=== PATIENT | male | born 1990 | race Caucasian/White ===

== ENCOUNTER 2017-08-05 08:51 | Emergency (ER) | payer MEDICAID ==
[~2017-08-05] VITALS: Ht 182.9 cm; Wt 97.5 kg
--- NOTE | 2017-08-05 08:57 | NUR ---
pt rec'd to er c/o upper rt abd pain 10/10 for one day AWAITING EVALUATION BY ER PROVIDER.
[2017-08-05] MEDS ORDERED: ONDANSETRON HCL/PF 4 MG/2 ML VIAL ONE (09:11)
[2017-08-05] MEDS ORDERED: KETOROLAC TROMETHAMINE 15 MG/ML VIAL ONE (09:12)
[2017-08-05 09:16] LABS: BASOPHILS # (AUTO) 0.3 /CMM (0.0-0.2); BASOPHILS % (AUTO) 1.4 % (0.0-2.0); EOSINOPHILS % (AUTO) 0.3 % (0.0-6.0); HEMATOCRIT 46 % (39-51); HEMOGLOBIN 16.4 g/dL (13.5-17.5); LYMPHOCYTES # (AUTO) 0.8 /CMM (0.8-4.8); LYMPHOCYTES % (AUTO) 4.4 % (20.0-44.0); MEAN CORPUSCULAR HGB CONC 35 g/dl (31.0-36.0); MEAN CORPUSCULAR VOLUME 83 fL (80-96); MONOCYTES % (AUTO) 5.3 % (2.0-12.0); NEUTROPHILS # (AUTO) 15.9 /CMM (1.8-8.9); NEUTROPHILS % (AUTO) 88.6 % (43.0-81.0); PLATELET COUNT (AUTO) 192 /CMM (150-450); RDW COEFFICIENT OF VARIATION 12.4 (11.5-15.0); RED BLOOD CELL COUNT(AUTO) 5.59 MIL/uL (4.5-6.0); WHITE BLOOD COUNT (AUTO) 18.1 K/uL (4.3-11.0)
--- NOTE | 2017-08-05 09:19 | NUR ---
alexia willett per md order vss ultrasound at bedside
[2017-08-05] MEDS ORDERED: PANTOPRAZOLE 40 MG VIAL ONE (09:20)
[2017-08-05 09:21] LABS: CALCIUM, SERUM 9.2 mg/dL (8.5-10.1); CREATININE 1.1 mg/dL (0.6-1.3); POTASSIUM 3.9 mmol/L (3.5-5.1)
[2017-08-05 09:27] LABS: ALBUMIN 4.2 g/dL (3.4-5.0); BILIRUBIN,DIRECT 0.2 mg/dL (0.0-0.2); BILIRUBIN,TOTAL 0.7 mg/dL (0.2-1.0); TOTAL PROTEIN, SERUM 8.2 g/dL (6.4-8.2)
[2017-08-05] MEDS ORDERED: PANTOPRAZOLE 40 MG VIAL IV ONE (09:30)
[2017-08-05] MEDS ORDERED: KETOROLAC TROMETHAMINE INJ 30 MG/ML VIAL IV ONE (09:30)
[2017-08-05] MEDS ORDERED: ONDANSETRON HCL/PF - ER 4 MG/2 ML VIAL IV ONE (09:30)
[2017-08-05] MEDS ORDERED: IV NS 0.9% 1,000 ML BAG IV ONE (09:30)
--- NOTE | 2017-08-05 10:01 | NUR ---
pt sent to xray sstated feeling better
[2017-08-05 10:29] LABS: NEUTROPHILS % (MANUAL) 83 (42-76)
[2017-08-05 10:30] LABS: BAND % (MANUAL) 2 % (0.0-5.0); EOSINOPHILS % (MANUAL) 2 % (0-4); LYMPHOCYTES % (MANUAL) 5 % (16-48); MONOCYTES % (MANUAL) 9 % (0-11.0)
[2017-08-05] MEDS ORDERED: IOHEXOL-300 100 ML VIAL IV ONE (11:39)
[2017-08-05] MEDS ORDERED: IV NS 0.9% 250 ML IV ONE (11:40)
--- NOTE | 2017-08-05 12:44 | NUR ---
PT. VERBALIZED UNDERSTANDING OF AFTERCARE INSTRUCTIONS.Patient discharged to home in stable condition. Written and verbal after care instructions given. Patient verbalizes understanding of instruction.IV removed. Catheter intact and site benign. Pressure and 4x4 applied to site. No bleeding noted.
[2017-08-05 12:47] VITALS: BP 117/84
== END 2017-08-05 12:48 | disposition home or self-care (01) ==
LOC: ER 08:54
DX: R10.11 Right upper quadrant pain (principal); F10.10 Alcohol abuse, uncomplicated
CPT/HCPCS: 36415; 71046; 76705-TC; 80048-TC; 80076-TC; 83690-TC; 85025-TC; 85378-TC; A4606; C9113; J1885; J2405; J7030; J7050; Q9967; Z7610